=== PATIENT | male | born 1965 | race Caucasian/White ===

== ENCOUNTER 2022-12-07 20:46 | Inpatient (IN) | payer BC ==
[~2022-12-07] VITALS: Ht 182.9 cm; Wt 94.5 kg
[2022-12-07 20:49] VITALS: BP_SYST 179
--- NOTE | 2022-12-07 20:49 | NUR ---
Triaged and placed patient in ER bed 8 for evaulation. Bed placed in lowest position with side rails up. Report given to Donnie ALVARADO for continuity of care. Instructed to notify ED staff for any changes in condition or worsening of symptoms while waiting to be seen by a provider. Patient verbalized understanding.
--- NOTE | 2022-12-07 20:50 | NUR ---
Received pt in bed 8, A&OX4, NAD. C/O of SOB but O2 sat at 97% on room air. Pt also c/o of L leg swelling for months now but more pronounce this time around. Denies chest pain.
--- NOTE | 2022-12-07 21:50 | NUR ---
ER Dr. Hanks at bedside examining patient.
[2022-12-07] MEDS ORDERED: ENALAPRILAT DIHYDRATE 1.25 MG/ML VIAL IVP ONE (22:00)
[2022-12-07] MEDS ORDERED: ALBUTEROL SULFATE 0.083% 2.5 MG/3 ML VIAL.NEB INH ONE (22:00)
[2022-12-07 22:24] LABS: BASOPHILS # (AUTO) 0.1 K/uL (0.0-0.2); BASOPHILS % (AUTO) 0.8 % (0.0-2.0); EOSINOPHILS # (AUTO) 0.3 K/uL (0.0-0.4); EOSINOPHILS % (AUTO) 2.8 % (0.0-4.0); HEMATOCRIT 41.5 % (36-54); HEMOGLOBIN 13.9 g/dL (14.0-18.0); LYMPHOCYTES # (AUTO) 1.9 K/uL (1.0-5.5); LYMPHOCYTES % (AUTO) 20.3 % (20.5-51.5); MEAN CORPUSCULAR HEMOGLOBIN 30 pg (27-31); MEAN CORPUSCULAR HGB CONC 34 % (32-36); MEAN CORPUSCULAR VOLUME 91 fL (79.0-98.0); MONOCYTES # (AUTO) 0.7 K/uL (0.0-1.0); MONOCYTES % (AUTO) 7.7 % (1.7-9.3); NEUTROPHILS # (AUTO) 6.3 K/uL (1.8-7.7); NEUTROPHILS % (AUTO) 68.4 % (40.0-70.0); PLATELET COUNT (AUTO) 308 K/uL (130-430); RED BLOOD CELL COUNT(AUTO) 4.58 MIL/uL (4.2-6.2); RED CELL DISTRIBUTION WIDTH 15.4 % (9.0-15.0); WHITE BLOOD COUNT (AUTO) 9.2 K/uL (4.8-10.8)
[2022-12-07 22:28] LABS: ANION GAP 7 (5-15); CALCIUM 8.2 mg/dL (8.4-11.0); CHLORIDE 97 mmol/L (98-107); CREATININE 0.96 mg/dL (0.55-1.30); GFR AFRICAN AMERICAN 103 mL/min (>90); GLUCOSE 240 mg/dL (70-99); UREA NITROGEN, BLOOD 15 mg/dL (8-21)
--- NOTE | 2022-12-07 22:33 | NUR ---
# 20 gauge angiocath placed to RFA. Use of asceptic technique. Opsite placed over site. Blood return noted. Blood for lab drawn from site. Flushed with 10 cc of normal saline. No evidence of infiltration noted. Patient tolerated well.
[2022-12-07 22:48] LABS: ALANINE AMINOTRANSFERASE 53 U/L (12-78); ALBUMIN 2.9 g/dL (3.4-4.8); ASPARTATE AMINOTRANSFERASE 25 U/L (10-37); TOTAL BILIRUBIN 0.9 mg/dL (0.0-1.0)
--- NOTE | 2022-12-07 22:52 | NUR ---
QRRP=[id number]. DR. FERNANDEZ IS AWARE
[2022-12-07] MEDS ORDERED: ENOXAPARIN SODIUM 80 MG/0.8 ML SYRINGE SUBCUT ONE (23:00)
--- NOTE | 2022-12-07 23:00 | NUR ---
EKG performed at by JENNY POLLARD. Physician given copy of EKG for review.
--- NOTE | 2022-12-07 23:43 | NUR ---
PATIENT STATES HE TAKES NO MEDICATIONS. MED REC COMPLETED
--- NOTE | 2022-12-07 23:52 | NUR ---
Admit bed requested Patient will be admitted to care of Sg Blevins. Admitted to TELEMETRY unit. Diagnosis : CHF EXACERBATION Inpatient :Yes Observation : No Orientation concerns or request close to nursing station :No Covid Status : PND On vent or bipap :NO Isolation requirements :NO Needs a sitter :NO From Home :Yes Requires Dialysis : No Med Rec Completed :Yes
[2022-12-08] VITALS (8 sets, daily range): BP systolic 136–162
[2022-12-08] MEDS ORDERED: IPRATROPIUM/ALBUTEROL SULFATE 3 ML AMPUL.NEB (DUONEB) INH PRN
[2022-12-08] MEDS ORDERED: LABETALOL HCL 20 MG/4 ML CARTRIDGE IVP ONE (00:30)
--- NOTE | 2022-12-08 01:40 | NUR ---
Patient will be admitted to care of Dr. Parada. Admitted to Tele unit. Will go to room 117A. Belongings list completed. Complete and up to date summary report printed. SBAR report to be given at bedside to JENNY Sun with opportunity for questions.
[2022-12-08] MEDS ORDERED: cloNIDine HCL 0.2 MG TABLET PO PRN (02:00)
[2022-12-08] MEDS ORDERED: METOPROLOL TARTRATE 25 MG TABLET PO ONE (02:00)
--- NOTE | 2022-12-08 02:00 | NUR ---
RECEIVED PT FROM ER VIA [facility] WITH DX OF CHF, AOX4, EVEN AND UNLABORED RESPIRATION, DENIED SOB, CP OR ANY PAIN ATT, IV ACCESS TO LFA, PATENT AND INTACT, COMPLETE BODY CHECK REVIEWED INTACT SKIN, NON PITTING EDEMA ON BLE, VOIDING AND LAST BM WAS YESTERDAY, VSS REVIEWED ELEVATED BP 149/108, HR 94 AND O2SAT OF 99% ON 2L OXYGEN VIA N/C. PT DENIED ANY SX ATT. PT ORIENTED TO ROOM, BED POSITIONING, USE OF CALL LIGHT AND INSTRUCTED TO CALL THE NURSE IF EXPERIENCING ANY SOB, N/V, DIZZINESS, INVENTORY COMPLETED, WILL CONTINUE WITH POC. AT 0205AM CALLED DR DUDLEY REGARDING PT ELEVATED BP, DR. DUDLEY ORDERED LOPRESSOR 25MG BID, LOPRESSOR 25MG X1 NOW, CLONIDINE 0.2MG Q 6 PRN AND TO GIVE X1 LOPRESSOR NOW AND RECHECK AFTER 1HR, IF SBP> 160 TO F/U WITH CLONIDINE 0.2MG. ORDER READ BACK AND CONFIRMED BY DR. DUDLEY. ORDER PLACED AND CARRIED OUT AT 0310AM RECHECKED PT BP ANDS IT WAS 145/113, HR 90, O2SAT 99%, PT WAS ASYMPTOMATIC, CALLED AND NOTIFIED DR. DUDLEY THAT BP 145/113, WAS ELEVATED BUT NOT GREATER THAN 160. DR DUDLEY SAID TO "LEAVE PT ALONE FOR NOW, JUST LET HIM REST, I WILL BE THERE IN THE AM, AROUND 7AM". ORDER CLARIFIED WITH DR. DUDLEY. INSTRUCT PT TO CALL NURSE IF EXPERIENCING N/V, SOB, CP OR DIZZINESS AND TO CALL FOR ASSISTANCE WHEN GETTING OOB, PT VERBALIZED UNDERSTANDING. WILL CONTINUE TO MONITOR
[2022-12-08] MEDS: INSULIN REGULAR, HUMAN 100 UNITS/ML, 3 ML VIAL (humuLIN R) SUBCUT PRN ×3 (06:20→21:58)
--- NOTE | 2022-12-08 06:23 | NUR ---
PT AOX4, LYING IN BED, EVEN AND UNLABORED BREATHING, BP ATT 148/111, HR 93, O2SAT 98%, PT DENIED ANY SX ATT, BS 175 AND RECEIVED INSULIN PER SLIDING SCALE, OXYGEN 2L VIA N/C, PT AMBULATORY TO RESTROOM W/O SENIOR BENEFITS ANALYST, VOIDING W/O DIFFICULTY, SAFETY PREC MAINTAINED, CALL LIGHT WITHIN REACH, WILL ENDORSE TO AM SHIFT
[2022-12-08 07:46] LABS: BASOPHILS % (AUTO) 0.3 % (0.0-2.0); EOSINOPHILS # (AUTO) 0.2 K/uL (0.0-0.4); EOSINOPHILS % (AUTO) 2.8 % (0.0-4.0); HEMATOCRIT 43.7 % (36-54); HEMOGLOBIN 14.4 g/dL (14.0-18.0); LYMPHOCYTES # (AUTO) 1.7 K/uL (1.0-5.5); LYMPHOCYTES % (AUTO) 20.1 % (20.5-51.5); MEAN CORPUSCULAR HEMOGLOBIN 30 pg (27-31); MEAN CORPUSCULAR HGB CONC 33 % (32-36); MEAN CORPUSCULAR VOLUME 91 fL (79.0-98.0); MONOCYTES # (AUTO) 0.6 K/uL (0.0-1.0); MONOCYTES % (AUTO) 6.4 % (1.7-9.3); NEUTROPHILS # (AUTO) 6.1 K/uL (1.8-7.7); NEUTROPHILS % (AUTO) 70.4 % (40.0-70.0); PLATELET COUNT (AUTO) 320 K/uL (130-430); RED CELL DISTRIBUTION WIDTH 15.7 % (9.0-15.0); WHITE BLOOD COUNT (AUTO) 8.6 K/uL (4.8-10.8)
[2022-12-08 08:02] LABS: CALCIUM 8.5 mg/dL (8.4-11.0); CREATININE 0.98 mg/dL (0.55-1.30)
[2022-12-08 08:04] LABS: TOTAL BILIRUBIN 1.1 mg/dL (0.0-1.0)
[2022-12-08] MEDS ORDERED: MUPIROCIN 2% TOPICAL OINTMENT 22 GM NS PRN (08:30)
[2022-12-08] MEDS ORDERED: NALOXONE HCL 0.4 MG/ML AMP (NARCAN) IVP PRN ×2 (08:30)
[2022-12-08] MEDS ORDERED: LORazepam 2 MG/ML VIAL IVP PRN (08:30)
[2022-12-08] MEDS ORDERED: MORPHINE 2 MG/ML INJ. SYRINGE IVP PRN ×2 (08:30)
[2022-12-08] MEDS ORDERED: DOCUSATE SODIUM 100 MG CAPSULE PO PRN (08:30)
[2022-12-08] MEDS ORDERED: ONDANSETRON HCL 4 MG/2 ML VIAL IVP PRN (08:30)
[2022-12-08] MEDS ORDERED: MAGNESIUM SULFATE 50 ML IV PRN (08:30)
[2022-12-08] MEDS ORDERED: ACETAMINOPHEN 325 MG TABLET PO PRN ×2 (08:30→08:45)
[2022-12-08] MEDS ORDERED: ZOLPIDEM TARTRATE 5 MG TABLET PO PRN (08:30)
[2022-12-08] MEDS ORDERED: POTASSIUM CHLORIDE 20 MEQ TAB.PRT.SR PO PRN (08:30)
[2022-12-08] MEDS ORDERED: INSULIN LISPRO SLIDING SCALE 100 UNITS/ML, 3 ML VIAL (humaLOG) SUBCUT PRN (08:30)
[2022-12-08] MEDS ORDERED: DEXTROSE 50% JECT 50 ML DISP.SYRIN IVP PRN (08:30)
--- NOTE | 2022-12-08 08:35 | NUR ---
CONSULTATION PAGED/CALLED Reason for Consultation: CHF,ELEVATED TROP Person Who was Notified: Consulting Physician: SCOTT FOX Housekeeper Supervisor Specialty: Ordering Physician: NETO DUDLEY Dr. was in the hospital, was notified himself
[2022-12-08] MEDS ORDERED: METOPROLOL TARTRATE 25 MG TABLET PO SCH ×2 (09:00)
[2022-12-08] MEDS: FUROSEMIDE 40 MG/4 ML VIAL IVP SCH (09:00)
[2022-12-08] MEDS: ASPIRIN 81 MG TABLET(ECOTRIN) PO SCH (09:00)
[2022-12-08] MEDS ORDERED: HEPARIN SODIUM,PORCINE 5,000 UNITS/ML VIAL SUBCUT SCH (09:00)
[2022-12-08] MEDS: ENOXAPARIN SODIUM 40 MG/0.4 ML SYRINGE SQ SCH (09:01)
[2022-12-08 10:46] LABS: BARBITURATE, URINE NEGATIVE (NEG <=200); BENZODIAZEPINE, URINE NEGATIVE (NEG <=150); CANNABINOID, URINE POSITIVE (NEG <=50); COCAINE, URINE NEGATIVE (NEG <=150); METHAMPHETAMINES SCREEN,URINE POSITIVE (NEG <=500); OPIATE, URINE NEGATIVE (NEG <=100); PHENCYCLIDINE SCREEN,URINE NEGATIVE (NEG <=25); UR TRICYCLIC ANTIDEPRESSANTS NEGATIVE (NEG <=300); URINE AMPHETAMINE NEGATIVE (NEG <=500); URINE METHADONE NEGATIVE (NEG <=200); URINE OXYCODONE SCREEN NEGATIVE (NEG <=100); URINE PROPOXYPHENE SCREEN NEGATIVE (NEG <=300)
[2022-12-08] MEDS ORDERED: LISINOPRIL 10 MG TABLET (PRINIVIL) PO ONE (12:00)
--- NOTE | 2022-12-08 18:43 | NUR ---
OUTCOME SUMMARY A/OX4. VSS. AFEBRILE. DENIES PAIN OR DISCOMFORT. RA. WILDE ON TELE. VOIDING. STRICT I&OS. A Addendum: 12/08/22 at 1849 by [facility] [employer], JENNY ALVARADO STEADY GAIT. ALL NEEDS MET, SAFETY AND COMFORT MEASURES MAINTAINED, CALL LIGHT WITHIN REACH.
--- NOTE | 2022-12-08 19:15 | NUR ---
CHANGE OF SHIFT; endorsed by day shift with DX CHF. no distress. call light within reach.
--- NOTE | 2022-12-08 20:25 | NUR ---
NOTES: called Dr. Hewitt to verify Lopressor po, only ordered 50 mg and stop the 25mg. also informed about the diastolic pressure over 100.
[2022-12-08] MEDS: METOPROLOL TARTRATE 50 MG TABLET PO SCH (20:29)
--- NOTE | 2022-12-08 22:12 | NUR ---
NOTES: pt. very anxious, cannot rest, Ativan IV given as ordered. VS rechecked. repositioned self for comfort.
--- NOTE | 2022-12-08 23:30 | NUR ---
NOTES:' pt. checked, sound asleep.
--- NOTE | 2022-12-09 01:44 | NUR ---
NOTES: pt. woke up disoriented, removed his lead patches. trying tp go restroom, assisted stand by and voided. back to bed and went back to sleep right away. bed alarm on.
--- NOTE | 2022-12-09 02:09 | NUR ---
NOTES: pt. been taking off monitor, reminded to keep it on.
--- NOTE | 2022-12-09 02:30 | NUR ---
NOTES: pt. keeps removing his monitor and patchs, reminded he is in the hospital. denies any shortness of breath nor pain. informed charge nurse Neil. condition observed.
--- NOTE | 2022-12-09 03:45 | NUR ---
NOTES: pt. has periods of confusion and disorientation, pt. room mate been complaining. charge nurse informed, transferred to room 102 A via bed. bed alarm on. for close observation.
--- NOTE | 2022-12-09 04:25 | NUR ---
NOTES: pt. dozing on and off, setting off the bed alarm.
[2022-12-09 05:39] LABS: BASOPHILS # (AUTO) 0.1 K/uL (0.0-0.2); BASOPHILS % (AUTO) 0.8 % (0.0-2.0); EOSINOPHILS # (AUTO) 0.1 K/uL (0.0-0.4); HEMATOCRIT 45.8 % (36-54); HEMOGLOBIN 15.3 g/dL (14.0-18.0); LYMPHOCYTES % (AUTO) 20.1 % (20.5-51.5); MEAN CORPUSCULAR HEMOGLOBIN 30 pg (27-31); MEAN CORPUSCULAR HGB CONC 34 % (32-36); MEAN CORPUSCULAR VOLUME 90 fL (79.0-98.0); MONOCYTES # (AUTO) 0.5 K/uL (0.0-1.0); MONOCYTES % (AUTO) 5.5 % (1.7-9.3); NEUTROPHILS # (AUTO) 7.1 K/uL (1.8-7.7); NEUTROPHILS % (AUTO) 72.6 % (40.0-70.0); PLATELET COUNT (AUTO) 347 K/uL (130-430); RED BLOOD CELL COUNT(AUTO) 5.07 MIL/uL (4.2-6.2); RED CELL DISTRIBUTION WIDTH 15.3 % (9.0-15.0); WHITE BLOOD COUNT (AUTO) 9.8 K/uL (4.8-10.8)
[2022-12-09 06:01] LABS: CREATININE 1.12 mg/dL (0.55-1.30)
[2022-12-09 06:19] LABS: ALBUMIN 3.3 g/dL (3.4-4.8); THYROID STIMULATING HORMONE 2.47 uIu/mL (0.34-4.82); TOTAL BILIRUBIN 1.7 mg/dL (0.0-1.0)
--- NOTE | 2022-12-09 06:46 | NUR ---
CLOSING NOTES; BS checked 116. still gets disoriented. assisted to restroom, stand by, and back to bed. keeps removing monitor, replaced patches. IV lock patent. for further casre and observation. called Dr Hewitt for elevated Troponin, no new orde. call light within reach.
[2022-12-09 08:00] VITALS: BP_SYST 158
--- NOTE | 2022-12-09 08:00 | NUR ---
INITIAL NOTE: Received Patient lying in bed, alert & oriented x 4. Denies pain at this time. No signs of acute distress noted at this time. Breathing is even & non-labored. Lung sounds clear, all lobes. 20 gauge SL to left forearm. Patient is on room air. Vitals WNL. No edema noted. Bed in low, locked position. Call light & personal items within reach. Patient c/o nausea. RN notified & will administer PRN IV meds shortly.
[2022-12-09] MEDS: ASPIRIN 81 MG TABLET(ECOTRIN) PO SCH (09:00)
[2022-12-09] MEDS: METOPROLOL TARTRATE 50 MG TABLET PO SCH ×2 (09:00→20:57)
[2022-12-09] MEDS: ENOXAPARIN SODIUM 40 MG/0.4 ML SYRINGE SQ SCH (09:00)
[2022-12-09] MEDS ORDERED: LISINOPRIL 10 MG TABLET (PRINIVIL) PO SCH (09:00)
[2022-12-09] MEDS ORDERED: SACUBITRIL/VALSARTAN 24 MG-26 MG 1 TABLET PO ONE (09:15)
--- NOTE | 2022-12-09 10:00 | NUR ---
Patient is resting in bed. Due AM meds have been administered. Tolerated well. States that his nausea has resolved. Bed in low position, wheels locked. Call light & personal items within reach.
--- NOTE | 2022-12-09 10:07 | NUR ---
CONSULTATION PAGED REASON FOR CONSULTATION: TRANSAMINITIS, HYPERBILIRUBEINEMIA WAS CONSULT CALLED? Y PERSON WHO WAS NOTIFIED: ROBERT CONSULTING PHYSICIAN: NATASHA ERVIN LAWN SPRINKLER SERVICER SPECIALTY: GI [employer] SPRINKL[employer] SERVICER PHONE NUMBER: [phone] REQUESTING PHYSICIAN: DR.[facility]
[2022-12-09] MEDS: FUROSEMIDE 40 MG/4 ML VIAL IVP SCH (11:16)
[2022-12-09 11:24] VITALS: BP_SYST 123
--- NOTE | 2022-12-09 12:00 | NUR ---
Patient is resting in position of comfort, eyes closed. Appears to be sleeping. No signs of distress noted. Bed in low position, wheels locked. Bed alarm active. Call light & personal items within reach.
--- NOTE | 2022-12-09 14:00 | NUR ---
Patient sitting in bed, family at bedside. Denies pain at this time. No signs of distress noted. New orders received for abdominal US tomorrow. Patient will be NPO after midnight. Patient made aware. Bed in low, locked position. Call light & personal items within reach.
[2022-12-09 15:25] VITALS: BP_SYST 135
--- NOTE | 2022-12-09 16:00 | NUR ---
Patient resting quietly in bed. Room lights off. No c/o pain. Bed in low, locked position. Bed alarm active for safety. Call light within reach.
[2022-12-09] MEDS: INSULIN REGULAR, HUMAN 100 UNITS/ML, 3 ML VIAL (humuLIN R) SUBCUT PRN (17:56)
--- NOTE | 2022-12-09 18:45 | NUR ---
Patient resting comfortably in bed, family at bedside. All needs met. Denies pain at this time. No signs of acute pain noted. Denies SOB. Vitals WNL. Bed in low, locked position. Call light & personal items within reach.
[2022-12-09 19:00] VITALS: BP_SYST 125
[2022-12-09 20:00] VITALS: BP_SYST 125
--- NOTE | 2022-12-09 20:00 | NUR ---
pt.assessed.v/s assessed values wnl.no c/o pain,nausea.pt.apprised snacks/beverages are available w/in the shift. no requests posited@this hour.re-iterated to pt.that diet status converts to npo status@midnight.pt.capable to ambulate;un-assisted,reposition self.call light/telephone w/in access of the pt.
[2022-12-09] MEDS: SACUBITRIL/VALSARTAN 24 MG-26 MG 1 TABLET PO SCH (20:57)
--- NOTE | 2022-12-09 21:30 | NUR ---
OPENING NOTE PT IS SIDE LYING WITH EYES CLOSED. NO APPARENT DISTRESS NOTED AT THIS TIME. BED IN LOWEST POSITION WITH FALL AND SAFETY PRECAUTIONS IN PLACE. CALL LIGHT WITHIN REACH, PT VERBALIZED HOW TO USE IT. ALL NEEDS MET AT THIS TIME.
--- NOTE | 2022-12-10 | NUR ---
pt.assessed.v/s assessed values wnl.no c/o pain,nausea.diet status converted to npo.re-iterated to the pt.call light/ telephone w/in access of the pt.
[2022-12-10 00:29] VITALS: BP_SYST 129
--- NOTE | 2022-12-10 03:15 | NUR ---
ROUNDS PT LYING IN BED WITH EYES CLOSED. NO APPARENT DISTRESS NOTED AT THIS TIME. FALL AND SAFETY PRECAUTIONS IN PLACE. CALL LIGHT WITHIN REACH.
--- NOTE | 2022-12-10 04:00 | NUR ---
pt.assessed.pt.quiescent.per flacc pain mgx pt.absent facial grimaces/body posturing.pt.capable to reposition self. call light/telephone w/in access of the pt.
--- NOTE | 2022-12-10 06:32 | NUR ---
CLOSING NOTE PT IS LYING IN BED WITH EYES CLOSED. NO APPARENT DISTRESS NOTED AT THIS TIME. BED IN LOWEST POSITION WITH FALL AND SAFETY PRECAUTIONS IN PLACE. CALL LIGHT WITHIN REACH. PT IS NPO.
[2022-12-10 07:19] LABS: CALCIUM 8.4 mg/dL (8.4-11.0); CREATININE 1.25 mg/dL (0.55-1.30)
[2022-12-10 07:31] LABS: BASOPHILS # (AUTO) 0.1 K/uL (0.0-0.2); BASOPHILS % (AUTO) 0.5 % (0.0-2.0); EOSINOPHILS # (AUTO) 0.1 K/uL (0.0-0.4); EOSINOPHILS % (AUTO) 0.7 % (0.0-4.0); HEMATOCRIT 47.8 % (36-54); HEMOGLOBIN 15.6 g/dL (14.0-18.0); LYMPHOCYTES # (AUTO) 2.2 K/uL (1.0-5.5); LYMPHOCYTES % (AUTO) 19.5 % (20.5-51.5); MEAN CORPUSCULAR HEMOGLOBIN 30 pg (27-31); MEAN CORPUSCULAR HGB CONC 33 % (32-36); MEAN CORPUSCULAR VOLUME 91 fL (79.0-98.0); MONOCYTES # (AUTO) 1.1 K/uL (0.0-1.0); MONOCYTES % (AUTO) 9.8 % (1.7-9.3); NEUTROPHILS # (AUTO) 7.9 K/uL (1.8-7.7); NEUTROPHILS % (AUTO) 69.5 % (40.0-70.0); PLATELET COUNT (AUTO) 358 K/uL (130-430); RED BLOOD CELL COUNT(AUTO) 5.26 MIL/uL (4.2-6.2); RED CELL DISTRIBUTION WIDTH 15.4 % (9.0-15.0); WHITE BLOOD COUNT (AUTO) 11.3 K/uL (4.8-10.8)
[2022-12-10 07:56] LABS: INR 1.7 (0.80-1.20); PROTHROMBIN TIME 17.5 SECS (9.5-12.5)
[2022-12-10 08:00] VITALS: BP_SYST 148
--- NOTE | 2022-12-10 08:00 | NUR ---
INITIAL NOTE: Received Patient lying in bed, asleep. Once awakened, Patient is oriented x 4. Denies pain at this time. Breathing is even & non-labored. Lungs clear all lobes. No c/o SOB. No signs of distress noted. 20 gauge saline lock to right forearm, patent with no pain or signs of infiltration noted. Patient uses urinal at bedside for elimination with standby assist. Bed in low, locked position. Bed alarm active. Call light & personal items within reach.
[2022-12-10] MEDS: ASPIRIN 81 MG TABLET(ECOTRIN) PO SCH (09:25)
[2022-12-10] MEDS: SACUBITRIL/VALSARTAN 24 MG-26 MG 1 TABLET PO SCH (09:25)
[2022-12-10] MEDS: METOPROLOL TARTRATE 50 MG TABLET PO SCH (09:25)
[2022-12-10] MEDS: ENOXAPARIN SODIUM 40 MG/0.4 ML SYRINGE SQ SCH (09:26)
[2022-12-10] MEDS: FUROSEMIDE 40 MG/4 ML VIAL IVP SCH (09:39)
--- NOTE | 2022-12-10 10:00 | NUR ---
INITIAL NOTE: Patient sitting in bed, no signs of acute distress noted. Denies pain at this time. All due AM meds given. Bed in low, locked position. Bed alarm active. Call light & personal items within reach. Addendum: 12/10/22 at 1421 by Frieda Delgado LVN Patient sitting in bed, no signs of acute distress noted. Denies pain at this time. All due AM meds given. Bed in low, locked position. Bed alarm active. Call light & personal items within reach.
[2022-12-10] MEDS ORDERED: POTA-178 PO (10:03)
[2022-12-10] MEDS ORDERED: ASPI-1393 PO (10:03)
[2022-12-10] MEDS ORDERED: SITA50TA3 PO (10:03)
[2022-12-10] MEDS ORDERED: FURO-149 PO (10:03)
[2022-12-10] MEDS ORDERED: SACU1TAB PO (10:03)
[2022-12-10] MEDS ORDERED: METO-442 PO (10:03)
[2022-12-10] MEDS ORDERED: METF-380 PO (10:03)
[2022-12-10 11:21] VITALS: BP_SYST 136
--- NOTE | 2022-12-10 12:00 | NUR ---
Received order to discharge Patient. Explained to patient discharge process & informed Patient family that approximate discharge time to be 1500. Blood sugar check 303, gave insulin 8 units according to sliding scale order. Patient denies pain or SOB at this time. Bed low, locked. Call light & personal items within reach.
[2022-12-10] MEDS: INSULIN REGULAR, HUMAN 100 UNITS/ML, 3 ML VIAL (humuLIN R) SUBCUT PRN (12:36)
[2022-12-10 14:37] VITALS: BP_SYST 127
[2022-12-10 15:12] VITALS: BP_SYST 127
--- NOTE | 2022-12-10 15:35 | NUR ---
Reviewed discharge paperwork with Patient & , including all discharge meds, inventory, discharge instructions & reasons to return to the hospital or seek further treatment. Medication orders were electronically transmitted to pharmacy of choice. Answered all questions. Patient verbalized understanding. IV removed & site covered with clean, dry dressing. No pain or bleeding at site. air sampling and monitoring & leads removed & sanitized.
[2022-12-11 09:06] LABS: ALPHA-1-ANTITRYPSIN, S 131 mg/dL (101-187); FERRITIN 242 ng/mL (30-400)
[2022-12-12 11:06] LABS: ANTI NUCLEAR AB WITH REFLEX Negative (Negative)
[2022-12-13 08:07] LABS: HEPATITIS A AB, IgM Negative (Negative); HEPATITIS B CORE AB, IgM Negative (Negative); HEPATITIS B SURFACE AG Negative (Negative)
[2022-12-18 08:06] LABS: ANTI-SMOOTH MUSCLE AB 6 Units (0-19)
== END 2022-12-10 15:30 | disposition home or self-care (01) | DRG 280 ==
LOC: SED 20:46 → STU 23:59
PROVIDERS: ADMIT General Practice; ATTEND General Practice
DX: I11.0 Hypertensive heart disease with heart failure (principal); I21.A1 Myocardial infarction type 2; I50.43 Acute on chronic combined systolic (congestive) and diastolic (congestive) heart failure; E44.0 Moderate protein-calorie malnutrition; E87.1 Hypo-osmolality and hyponatremia; I87.2 Venous insufficiency (chronic) (peripheral); E87.6 Hypokalemia; R09.02 Hypoxemia; F17.210 Nicotine dependence, cigarettes, uncomplicated; F10.10 Alcohol abuse, uncomplicated; Y90.9 Presence of alcohol in blood, level not specified; J44.9 Chronic obstructive pulmonary disease, unspecified; R74.01 Elevation of levels of liver transaminase levels; F19.10 Other psychoactive substance abuse, uncomplicated; I25.5 Ischemic cardiomyopathy; Z20.822 Contact with and (suspected) exposure to COVID-19; Z68.28 Body mass index [BMI] 28.0-28.9, adult
CPT/HCPCS: 36415; 36600; 71045; 76700-TC; 80048; 80053; 80061; 80074; 80307; 82103; 82728; 82803-TC; 83037; 83516; 83605; 83735; 83880; 84443; 84484; 85025; 85379; 85610-TC; 86038; 87040; 93005; 93306; 93970; 94640; 94760; 96372; 96374; 99285; G0378; J1650; J1940; J2060; J2405; J7613

== ENCOUNTER 2023-11-30 22:34 | Inpatient (IN) | payer BC ==
[~2023-11-30] VITALS: Ht 182.9 cm; Wt 87.5 kg
[~2023-11-30 22:34] MED LIST: ASPI-1393 PO; FURO-149 PO; METF-380 PO; METO-442 PO; POTA-178 PO; SACU1TAB PO; SITA50TA3 PO
[2023-11-30 22:55] VITALS: BP_SYST 127; PULSE 82; RESP 16; TEMP 97.3; O2SAT 95
[2023-11-30] MEDS: NITROGLYCERIN 1 INCH (GM) OINT. TD ONE (23:22)
[2023-11-30] MEDS: NITROGLYCERIN 0.4 MG TAB.SUBL SL ONE (23:23)
[2023-11-30 23:47] LABS: BASOPHILS % (AUTO) 0.1 % (0.0-2.0); EOSINOPHILS # (AUTO) 0.2 K/uL (0.0-0.4); EOSINOPHILS % (AUTO) 1.3 % (0.0-4.0); HEMATOCRIT 41.1 % (36-54); HEMOGLOBIN 13.8 g/dL (14.0-18.0); LYMPHOCYTES # (AUTO) 1.3 K/uL (1.0-5.5); LYMPHOCYTES % (AUTO) 9.2 % (20.5-51.5); MEAN CORPUSCULAR HEMOGLOBIN 31 pg (27-31); MEAN CORPUSCULAR HGB CONC 34 % (32-36); MEAN CORPUSCULAR VOLUME 92 fL (79.0-98.0); MONOCYTES # (AUTO) 1.3 K/uL (0.0-1.0); MONOCYTES % (AUTO) 8.8 % (1.7-9.3); NEUTROPHILS # (AUTO) 11.6 K/uL (1.8-7.7); NEUTROPHILS % (AUTO) 80.6 % (40.0-70.0); PLATELET COUNT (AUTO) 277 K/uL (130-430); RED BLOOD CELL COUNT(AUTO) 4.48 MIL/uL (4.2-6.2); RED CELL DISTRIBUTION WIDTH 13.6 % (9.0-15.0); WHITE BLOOD COUNT (AUTO) 14.3 K/uL (4.8-10.8)
[2023-12-01 00:02] LABS: ANION GAP 5 (5-15); CALCIUM 8.3 mg/dL (8.4-11.0); CARBON DIOXIDE 29 mmol/L (23-29); CHLORIDE 100 mmol/L (98-107); CREATININE 1.24 mg/dL (0.55-1.30); GFR AFRICAN AMERICAN 76 mL/min (>90); GLUCOSE 233 mg/dL (74-106); POTASSIUM 3.1 mmol/L (3.5-5.1); SODIUM SERUM 134 mmol/L (136-145); UREA NITROGEN, BLOOD 20 mg/dL (8-21)
[2023-12-01 00:03] LABS: GFR NON AFRICAN-AMERICAN 63 mL/min (>90)
[2023-12-01] MEDS ORDERED: MORPHINE 2 MG/ML INJ. SYRINGE IVP PRN (01:45)
[2023-12-01] MEDS ORDERED: ONDANSETRON HCL 4 MG/2 ML VIAL IVP PRN ×2 (01:45→08:00)
[2023-12-01] MEDS ORDERED: INSULIN REGULAR, HUMAN 100 UNITS/ML, 3 ML VIAL (humuLIN R) SUBCUT PRN (01:45)
[2023-12-01] MEDS ORDERED: NITROGLYCERIN 0.4 MG TAB.SUBL SL PRN (01:45)
[2023-12-01] MEDS: POTASSIUM CHLORIDE 20 MEQ/PKT PACKET PO ONE (02:09)
[2023-12-01] MEDS: ONDANSETRON HCL 4 MG/2 ML VIAL IVP ONE (02:09)
[2023-12-01] MEDS: MORPHINE 4 MG INJ. 4 MG/ML VIAL IVP ONE (02:10)
[2023-12-01] MEDS: ENOXAPARIN SODIUM 100 MG/ML SYRINGE SUBCUT SCH (02:12)
[2023-12-01] MEDS: *LOVENOX 1MG/KG Q12H/PHARMACY XX ONE (02:12)
[2023-12-01] MEDS ORDERED: HYDROcodone/ACETAMIN 5-325 MG TAB (NORCO/ VICODIN) PO PRN (08:00)
[2023-12-01] MEDS ORDERED: DEXTROSE 50% JECT 50 ML DISP.SYRIN IVP PRN (08:00)
[2023-12-01] MEDS ORDERED: ACETAMINOPHEN 325 MG TABLET PO PRN ×2 (08:00→08:15)
[2023-12-01 08:28] LABS: BASOPHILS % (AUTO) 0.3 % (0.0-2.0); EOSINOPHILS # (AUTO) 0.1 K/uL (0.0-0.4); EOSINOPHILS % (AUTO) 0.5 % (0.0-4.0); HEMOGLOBIN 14.4 g/dL (14.0-18.0); LYMPHOCYTES # (AUTO) 1.7 K/uL (1.0-5.5); LYMPHOCYTES % (AUTO) 15.3 % (20.5-51.5); MEAN CORPUSCULAR HEMOGLOBIN 32 pg (27-31); MEAN CORPUSCULAR HGB CONC 34 % (32-36); MEAN CORPUSCULAR VOLUME 93 fL (79.0-98.0); MONOCYTES # (AUTO) 1.2 K/uL (0.0-1.0); MONOCYTES % (AUTO) 11.2 % (1.7-9.3); NEUTROPHILS # (AUTO) 8.1 K/uL (1.8-7.7); NEUTROPHILS % (AUTO) 72.7 % (40.0-70.0); PLATELET COUNT (AUTO) 275 K/uL (130-430); RED BLOOD CELL COUNT(AUTO) 4.52 MIL/uL (4.2-6.2); RED CELL DISTRIBUTION WIDTH 13.7 % (9.0-15.0); WHITE BLOOD COUNT (AUTO) 11.1 K/uL (4.8-10.8)
[2023-12-01 08:44] LABS: CALCIUM 8.6 mg/dL (8.4-11.0); CREATININE 0.94 mg/dL (0.55-1.30); POTASSIUM 3.4 mmol/L (3.5-5.1)
[2023-12-01] MEDS ORDERED: ATORVASTATIN 20 MG TABLET PO SCH (09:00)
[2023-12-01 09:06] LABS: ALBUMIN 3.2 g/dL (3.4-4.8); THYROID STIMULATING HORMONE 0.73 uIu/mL (0.34-4.82); TOTAL BILIRUBIN 1.3 mg/dL (0.0-1.0); TOTAL PROTEIN, SERUM 6.6 g/dL (6.4-8.3)
[2023-12-01] MEDS: ASPIRIN 81 MG TABLET(ECOTRIN) PO SCH (09:09)
[2023-12-01] MEDS: METOPROLOL TARTRATE 25 MG TABLET PO SCH (09:10)
[2023-12-01] MEDS: ATORVASTATIN 20 MG TABLET PO SCH (09:10)
[2023-12-01] MEDS ORDERED: FURO-149 PO (10:11)
[2023-12-01] MEDS ORDERED: METO-442 PO (10:11)
[2023-12-01] MEDS ORDERED: POTA-178 PO (10:11)
[2023-12-01 10:12] LABS: HEMOGLOBIN A1C 6.64 % (<5.7)
[2023-12-01] MEDS ORDERED: POTASSIUM CHLORIDE 20 MEQ TABLET.ER ONE (10:29)
[2023-12-01] MEDS: POTASSIUM CHLORIDE 20 MEQ TABLET.ER PO ONE (10:31)
[2023-12-01] MEDS: SACUBITRIL/VALSARTAN 24 MG-26 MG 1 TABLET PO ONE (10:34)
[2023-12-01 12:08] LABS: BILIRUBIN,URINE NEGATIVE (NEGATIVE); BLOOD, URINE NEGATIVE (NEGATIVE); CLARITY/URINE CLEAR (CLEAR); COLOR,URINE YELLOW (YELLOW); GLUCOSE,URINE TRACE (NEGATIVE); KETONES,URINE NEGATIVE (NEGATIVE); LEUKOCYTE ESTERASE ,URINE NEGATIVE (NEGATIVE); NITRITE, URINE NEGATIVE (NEGATIVE); PH,URINE 5.5 (5.0-8.0); PROTEIN URINE 1+ (NEGATIVE); UROBILINOGEN,URINE 0.2 (0.2-1.0)
[2023-12-01 12:39] LABS: BACTERIA,URINE None Seen /HPF (None Seen); CALCIUM OXALATE CRYSTALS,UR 0-10 /HPF (None Seen); HYALINE CASTS, URINE 0-1 /LPF (None Seen); MUCUS,URINE 4+ /LPF (None Seen); RBC,URINE NONE SEEN /HPF (0-3); WBC,URINE NONE SEEN /HPF (0-3)
[2023-12-01 12:50] LABS: BARBITURATE, URINE NEGATIVE (NEG <=200); BENZODIAZEPINE, URINE NEGATIVE (NEG <=150); CANNABINOID, URINE POSITIVE (NEG <=50); COCAINE, URINE NEGATIVE (NEG <=150); METHAMPHETAMINES SCREEN,URINE POSITIVE (NEG <=500); OPIATE, URINE POSITIVE (NEG <=100); PHENCYCLIDINE SCREEN,URINE NEGATIVE (NEG <=25); UR TRICYCLIC ANTIDEPRESSANTS NEGATIVE (NEG <=300); URINE AMPHETAMINE POSITIVE (NEG <=500); URINE METHADONE NEGATIVE (NEG <=200); URINE OXYCODONE SCREEN NEGATIVE (NEG <=100)
[2023-12-01 17:03] VITALS: BP_SYST 146; PULSE 77; RESP 18; TEMP 97.1
[2023-12-01 17:16] VITALS: BP_SYST 146; PULSE 77; RESP 18; TEMP 97.1
[2023-12-01 17:21] VITALS: O2SAT 98
[2023-12-01 20:00] VITALS: BP_SYST 156; PULSE 83; RESP 18; TEMP 98.8; O2SAT 96
[2023-12-01] MEDS: INSULIN LISPRO SLIDING SCALE 100 UNITS/ML, 3 ML VIAL (humaLOG) SUBCUT PRN (20:48)
[2023-12-01] MEDS: SACUBITRIL/VALSARTAN 24 MG-26 MG 1 TABLET PO SCH (20:49)
[2023-12-01] MEDS ORDERED: METOPROLOL TARTRATE 50 MG TABLET PO SCH (21:00)
[2023-12-02] VITALS: BP_SYST 149; PULSE 85; RESP 17; TEMP 98.5; O2SAT 96
[2023-12-02 06:03] LABS: BASOPHILS % (AUTO) 0.3 % (0.0-2.0); EOSINOPHILS # (AUTO) 0.2 K/uL (0.0-0.4); EOSINOPHILS % (AUTO) 1.3 % (0.0-4.0); HEMATOCRIT 46.2 % (36-54); HEMOGLOBIN 15.8 g/dL (14.0-18.0); LYMPHOCYTES # (AUTO) 1.6 K/uL (1.0-5.5); LYMPHOCYTES % (AUTO) 12.6 % (20.5-51.5); MEAN CORPUSCULAR HEMOGLOBIN 32 pg (27-31); MEAN CORPUSCULAR HGB CONC 34 % (32-36); MEAN CORPUSCULAR VOLUME 93 fL (79.0-98.0); MONOCYTES # (AUTO) 1.3 K/uL (0.0-1.0); MONOCYTES % (AUTO) 10.3 % (1.7-9.3); NEUTROPHILS # (AUTO) 9.4 K/uL (1.8-7.7); NEUTROPHILS % (AUTO) 75.5 % (40.0-70.0); PLATELET COUNT (AUTO) 279 K/uL (130-430); RED BLOOD CELL COUNT(AUTO) 4.96 MIL/uL (4.2-6.2); RED CELL DISTRIBUTION WIDTH 13.7 % (9.0-15.0); WHITE BLOOD COUNT (AUTO) 12.5 K/uL (4.8-10.8)
[2023-12-02 06:21] LABS: CALCIUM 8.7 mg/dL (8.4-11.0); CREATININE 0.8 mg/dL (0.55-1.30); POTASSIUM 3.5 mmol/L (3.5-5.1)
[2023-12-02 07:25] VITALS: BP_SYST 152; PULSE 80; RESP 18; TEMP 95.5; O2SAT 96
[2023-12-02] MEDS: POTASSIUM CHLORIDE 10 MEQ TABLET.ER PO SCH (08:27)
[2023-12-02] MEDS: FUROSEMIDE 40 MG TABLET PO SCH (08:29)
[2023-12-02] MEDS ORDERED: ASPIRIN 81 MG TABLET(ECOTRIN) PO SCH (09:00)
[2023-12-02 20:00] VITALS: BP_SYST 152; PULSE 82; RESP 18; TEMP 97.6; O2SAT 97
[2023-12-02] MEDS: HYDROcodone/ACETAMIN 10-325 MG TAB PO PRN (20:56)
[2023-12-03] VITALS: BP_SYST 149; PULSE 73; RESP 17; TEMP 98; O2SAT 96
[2023-12-03 08:08] VITALS: BP_SYST 147; PULSE 85; RESP 16; TEMP 98.6; O2SAT 95
[2023-12-03] MEDS ORDERED: IBUP-1969 PO (09:06)
[2023-12-03] MEDS ORDERED: METO25TA6 PO (09:06)
[2023-12-03] MEDS ORDERED: LINA5TAB2 PO (09:06)
[2023-12-03] MEDS: IBUPROFEN 600 MG TABLET PO SCH (09:17)
[2023-12-03 10:24] VITALS: BP_SYST 149; PULSE 60; RESP 15; TEMP 99; O2SAT 98
[2023-12-03 11:15] VITALS: BP_SYST 149; PULSE 60; RESP 15; TEMP 99; O2SAT 98
== END 2023-12-03 13:00 | disposition home or self-care (01) | DRG 557 ==
LOC: SED 22:34 → STU 12-01 01:37
PROVIDERS: ADMIT Internal Medicine; ATTEND Internal Medicine
DX: M75.52 Bursitis of left shoulder (principal); I21.A1 Myocardial infarction type 2; I42.0 Dilated cardiomyopathy; M19.012 Primary osteoarthritis, left shoulder; F15.10 Other stimulant abuse, uncomplicated; I27.20 Pulmonary hypertension, unspecified; E87.6 Hypokalemia; Z20.822 Contact with and (suspected) exposure to COVID-19; F10.10 Alcohol abuse, uncomplicated; Y90.9 Presence of alcohol in blood, level not specified; I08.1 Rheumatic disorders of both mitral and tricuspid valves; E11.9 Type 2 diabetes mellitus without complications; I10 Essential (primary) hypertension; Z87.891 Personal history of nicotine dependence; Z79.84 Long term (current) use of oral hypoglycemic drugs; Z79.82 Long term (current) use of aspirin; Z79.899 Other long term (current) drug therapy
CPT/HCPCS: 36415; 71045; 73030; 80048; 80053; 80061; 80307; 81000; 81001; 81015; 82948; 83037; 83735; 83880; 84443; 84484; 85025; 93005; 93306; 99285; G0378; J1650; J2270; J2405